=== PATIENT | female | born 1950 | race Caucasian/White ===

== ENCOUNTER 2022-04-01 06:34 | Day surgery (SDC) | payer MEDICARE, BC, OTHER ==
[2022-04-01] MEDS ORDERED: fentaNYL 50 MCG/ML SDV ONE (07:02)
[2022-04-01] MEDS ORDERED: Propofol 200 MG/20 ML SDV ONE (07:02)
[2022-04-01] MEDS ORDERED: Lactated Ringers 1,000 ML IV SCH (07:45)
[2022-04-01] MEDS ORDERED: Ondansetron 4 MG/2 ML SDV ONE (08:25)
[2022-04-01] MEDS ORDERED: Dexamethasone 4 MG/ML SDV ONE (08:25)
== END 2022-04-01 10:15 | disposition home or self-care (01) ==
LOC: JP.SDS 06:34
PROVIDERS: ATTEND Student in an Organized Health Care Education/Training Program
DX: D12.2 Benign neoplasm of ascending colon (principal); K21.9 Gastro-esophageal reflux disease without esophagitis; Z88.5 Allergy status to narcotic agent; Z79.899 Other long term (current) drug therapy
CPT/HCPCS: 45380; 88305; J1100; J2405; J2704; J3010; J7120